=== PATIENT | female | born 1990 | race African-American/Black ===

== ENCOUNTER 2016-05-08 02:54 | Emergency (ER) | payer SELFPAY ==
[~2016-05-08] VITALS: Ht 162.6 cm; Wt 97.5 kg
[2016-05-08 02:57] VITALS: TEMP 98.4
[2016-05-08 03:34] LABS: BASO % 0.3 % (0.0-2.0); EOS # 0.2 (0.0-0.7); EOS % 1.6 % (0-4.0); GRAN # 10.3 (1.4-6.5); GRAN % 67.6 % (42.2-75.2); LYMPH # 3.6 (1.2-3.4); LYMPH % 23.7 % (20.0-51.0); MEAN CELL VOLUME 72 fl (80.0-100.0); MEAN CORPUSCULAR HGB CONC 31 g/dl (33.0-37.0); MEAN PLATELET VOLUME 10.3 fl (7.4-10.4); MONO % 6.5 % (1.7-9.3); PLATELET COUNT 284 K/mm3 (130-400); RED BLOOD COUNT 4.79 M/mm3 (4.10-5.30); REDCELL DISTRIBUTION WIDTH-CV 19.4 % (11.5-14.5); WHITE BLOOD COUNT 15.2 K/mm3 (4.8-10.8)
[2016-05-08 03:58] LABS: HEMATOCRIT 34.4 % (37.0-47.0); HEMOGLOBIN 10.8 g/dl (12.5-16.0); MEAN CORPUSCULAR HEMOGLOBIN 23 pg (27.0-31.0)
[2016-05-08 04:05] LABS: ADJUSTED CALCIUM 9.5 mg/dL (8.4-10.2); ALBUMIN 4.3 gm/dL (3.5-5.0); BILIRUBIN,TOTAL 0.7 mg/dL (0.0-1.0); CALCIUM 9.7 mg/dL (8.4-10.2); CREATININE, serum 0.87 mg/dL (0.52-1.25); POTASSIUM 3.6 mmol/L (3.4-5.0); TOTAL PROTEIN 8.5 gm/dL (6.4-8.2)
[2016-05-08 04:19] LABS: PH 5 (5-8); URINE APPEARANCE Hazy; URINE BACTERIA Rare /hpf; URINE BILIRUBIN Negative (NEGATIVE); URINE BLOOD 2+ (NEGATIVE); URINE COLOR Yellow; URINE GLUCOSE Negative (NEGATIVE); URINE KETONE 1+ (NEGATIVE); URINE UROBILINOGEN Negative (NEGATIVE); URINE WBC 20-50 /hpf
[2016-05-08] MEDS ORDERED: ZOFRAN ODT4 MG PO (05:09)
[2016-05-08] MEDS ORDERED: NORCO 325 MG-51 TAB PO (05:09)
[2016-05-08] MEDS ORDERED: OMNICEF 300MG300 MG PO (05:09)
[2016-05-08 05:35] VITALS: BP 120/81; PULSE 97
== END 2016-05-08 05:39 | disposition home or self-care (01) ==
LOC: COL.ER 02:54
PROVIDERS: Emergency Medicine
DX: N12 Tubulo-interstitial nephritis, not specified as acute or chronic (principal); B96.4 Proteus (mirabilis) (morganii) as the cause of diseases classified elsewhere; Z87.442 Personal history of urinary calculi; Z97.5 Presence of (intrauterine) contraceptive device; F17.210 Nicotine dependence, cigarettes, uncomplicated; R10.32 Left lower quadrant pain; R10.12 Left upper quadrant pain
CPT/HCPCS: J0696; J1170; J2405; J7030; Q9967